=== PATIENT | female | born 2000 | race Caucasian/White ===

== ENCOUNTER 2021-03-23 00:41 | Emergency (ER) | payer OTHER, SELFPAY ==
[2021-03-23 01:34] VITALS: BP 97/55; PULSE 70; RESP 18; TEMP 35.9; O2SAT 98; BMI 21.7
--- NOTE | 2021-03-23 02:18 | ECG_ITS ---
Test Reason : SOB Blood Pressure : / mmHG Vent. Rate : 054 BPM Atrial Rate : 054 BPM P-R Int : 162 ms QRS Dur : 076 ms QT Int : 416 ms P-R-T Axes : 058 030 039 degrees QTc Int : 394 ms Sinus bradycardia Otherwise normal ECG No previous ECGs available Referred By: Generic ED Physician Electronically Signed By:KATJA ARSHAD
[2021-03-23 02:35] LABS: MANUAL DIFF FLAG NO
[2021-03-23 02:43] LABS: Basophils Percent Auto 0.3 % (0-2); Eosinophils Absolute Auto 0.1 X10*3/uL (0.0-0.4); Hematocrit 32.8 % (37-47); Hemoglobin 11.6 g/dl (12.0-16.0); Imm Gran Abs Auto 0.05 X10*3/uL (0.00-0.03); Imm Gran Pct Auto 0.4 % (0.0-0.4); Lymphocytes Absolute Auto 2.4 X10*3/uL (1.2-4.9); Lymphocytes Percent Auto 20.6 % (20-40); Mean Corpuscular HGB Conc 35.4 g/dl (31.0-35.0); Mean Corpuscular Hemoglobin 31.5 pg (27.0-33.0); Mean Corpuscular Volume 89.1 fL (80-98); Mean Platelet Volume 9.9 fL (9.4-12.3); Monocytes Absolute Auto 0.7 X10*3/uL (0.1-1.2); Monocytes Percent Auto 5.7 % (2-11); Neutrophils Absolute Auto 8.6 X10*3/uL (2.0-8.3); Platelet Count 304 X10*3/uL (160-400); Red Blood Count 3.68 X10*6/uL (4.20-5.50); Red Cell Distribution Width 13.2 % (11.0-16.0); White Blood Count 11.9 X10*3/uL (4.8-10.8)
--- NOTE | 2021-03-23 02:44 | PC.NURSE ---
PT placed on monitor, VSS, IV inserted into left AC. Labs and EKG completed. PT is still reporting left sided chest pain. PT is resting in bed, respirations even and unlabored.
[2021-03-23 02:58] LABS: Anion Gap 14 (12-20); Blood Urea Nitrogen 8 mg/dL (9-16); Calcium 9.6 mg/dL (8.4-10.2); Carbon Dioxide 23 mmol/L (22-29); Chloride 106 mmol/L (96-108); Creatinine Clr Calc Pharmacy 111.9; Estimated Glomerular Filt Rate > 60; Glucose Random 72 mg/dL (60-115); Potassium 4.6 mmol/L (3.3-5.1); Sodium 138 mmol/L (135-145)
[2021-03-23 02:59] LABS: Troponin-I High Sensitivity 5.2 ng/L (<3.5-17.0)
[2021-03-23 03:15] LABS: D Dimer < 200 NG/ML
--- NOTE | 2021-03-23 04:52 | ED.CHESTPAIN ---
HPI - Chest Pain General Chief Complaint: Chest Pain Stated Complaint: SOB/Chest pain/Back pain 4 months Time Seen by Provider: 03/23/21 04:52 Source: patient Mode of arrival: ambulatory Limitations: no limitations History of Present Illness HPI narrative: 20-year-old female, approximately 17 weeks with an estimated day delivery of 08/26/2022 who presents emergency department for evaluation of chest pain and shortness of breath. Patient states that she has had a dull pain in her epigastric and left chest area for approximately 2 days. She states that at 11:00 p.m., the chest pain became worse and she developed shortness of breath. She states that the pain was a constant pain which was 6/10 at its worst. She states that she had chills but no fever or cough. She states she has been experiencing some heartburn like symptoms as well. The chest pain was worse with breathing and did radiate to her back. She denied frequency, urgency, dysuria or change in bowel movements. Related Data Previous Rx's Medication Instructions Recorded cimetidine 800 mg tablet 800 mg PO BID #60 tab 03/23/21 Allergies Allergy/AdvReac Type Severity Reaction Status Date / Time No Known Allergies Allergy Verified 03/23/21 01:33 Review of Systems Review of Systems: Yes all other systems are reviewed and are negative [facility] Past Medical History [facility] Narrative: Past medical history: Asthma, GERD, depression, anxiety, PTSD. Past surgical history: None. Social history: She denies tobacco, alcohol and drug use. Social History Social History Advance Directives: No Advance Directives Information Provided: No Patient : Yes Physical Exam Vital Signs: Vital Signs: Last Vital Signs Temp 96.7 F L 03/23/21 01:34 Pulse 70 03/23/21 01:34 Resp 18 03/23/21 01:34 BP 97/55 L 03/23/21 01:34 Pulse Ox 98 03/23/21 01:34 Body Mass Index 21.7 Const: Other: Very pleasant and cooperative female patient, does not appear to be in distress, answers all questions appropriately. HENMT: Head: Yes normal to inspection, Yes normocephalic and Yes atraumatic Ears: external ears normal General nose exam: Normal external nose present Face and sinus: Yes normal facial exam Mouth: Normal oral and palatal mucosa present Throat: Yes posterior oropharynx normal Eyes: General: appearance normal, both eyes and all related structures Pupils: Equal, round and reactive pupils present Neck: Neck: Yes normal visual inspection, Yes no lymphadenopathy, Yes trachea midline and Yes supple Chest: Chest palpation & inspection: normal inspection of the chest and tenderness (Left anterior chest) Resp: Effort & Inspection: normal respiratory effort and able to speak in complete sentences Auscultation: clear to auscultation bilaterally Cardio: Rate: regular rate Rhythm: regular rhythm Heart sounds: S1 normal heart sound present, S2 normal heart sound present and no murmurs GI: Inspection: Yes other (Gravid) Palpation (GI): Soft to palpation, nontender and no guarding Auscultation: normal bowel sounds : General: Yes no CVA tenderness Back/Spine/Pelvis: Back: no CVA tenderness Skin: General skin exam: no rashes or lesions noted Neuro: Cranial nerves: Yes CN's II-XII intact bilaterally and Yes Equal, round and reactive pupils present Cognition (Neuro): normal cognition Motor exam (neuro): 5/5 motor strength present throughout Extrem: General: Yes normal to inspection Psych: Appearance: grossly normal Speech and movement: Normal speech and movement present Affect: normal affect Attitude: cooperative Thought process: Normal thought process present Thought content: Normal thought content present Course Course Course Narrative: 20-year-old female who presents emergency department for evaluation of left-sided chest pain for 2 days, with chest pain that was worse at 11:00 p.m. associated with shortness of breath. The patient's vital signs were normal. Examination did reveal tenderness with palpation of her left chest wall and epigastric tenderness. Twelve EKG was unremarkable. Laboratory evaluation revealed mild anemia with an H&H of 11.6 and 32.8. The patient's D-dimer was below detectable limits. At this time, I suspect that the patient's pain is caused by gastritis and esophageal reflex/esophageal spasm. I did discuss this with the patient. The patient was started on cimetidine 800 mg twice a day for 1 month, she was advised to take Tums for the next week for her heartburn symptoms. She was also advised to take Tylenol for pain. She was discharged home. The patient was given verbal and printed instructions prior to discharge. The patient was given verbal and printed instructions prior to discharge. The patient was advised to follow-up with her PCP in 2 days and to return to the emergency department if her symptoms get worse or if she develops any new symptoms that are concerning to her. MDM - Chest Pain Lab Data Result diagrams: 03/23/21 02:25 03/23/21 02:25 Labs: Lab Results 03/23/21 03/23/21 03/23/21 Range/Units 02:25 02:25 02:25 WBC 11.9 H (4.8-10.8) X10*3/uL RBC 3.68 L (4.20-5.50) X10*6/uL Hgb 11.6 L (12.0-16.0) g/dl Hct 32.8 L (37-47) % MCV 89.1 (80-98) fL MCH 31.5 (27.0-33.0) pg MCHC 35.4 H (31.0-35.0) g/dl RDW 13.2 (11.0-16.0) % Plt Count 304 (160-400) X10*3/uL MPV 9.9 (9.4-12.3) fL Immature Gran % (Auto) 0.4 (0.0-0.4) % Neut % (Auto) 72.0 (45-73) % Lymph % (Auto) 20.6 (20-40) % [place] % (Auto) 5.7 (2-11) % Eos % (Auto) 1.0 (0-4) % Baso % (Auto) 0.3 (0-2) % Lymph # (Auto) 2.4 (1.2-4.9) X10*3/uL [place] # (Auto) 0.7 (0.1-1.2) X10*3/uL Eos # (Auto) 0.1 (0.0-0.4) X10*3/uL Baso # (Auto) 0.0 (0.0-0.2) X10*3/uL Abs Immat Gran (auto) 0.05 H (0.00-0.03) X10*3/uL Absolute Neuts (auto) 8.6 H (2.0-8.3) X10*3/uL Absolute Nucleated RBC 0.000 (0.0-0.012) X10*3/uL Nucleated RBC % (auto) 0.0 (0.0-0.2) /100WBC D-Dimer NG/ML Sodium 138 (135-145) mmol/L Potassium 4.6 (3.3-5.1) mmol/L Chloride 106 (96-108) mmol/L Carbon Dioxide 23 (22-29) mmol/L Anion Gap 14 (12-20) BUN 8 L (9-16) mg/dL Creatinine 0.60 (0.5-1.4) mg/dL Estim Creat Clear Calc 111.9 Estimated GFR > 60 Random Glucose 72 (60-115) mg/dL Calcium 9.6 (8.4-10.2) mg/dL Troponin I High Sens 5.2 (<3.5-17.0) ng/L 03/23/21 Range/Units 02:25 WBC (4.8-10.8) X10*3/uL RBC (4.20-5.50) X10*6/uL Hgb (12.0-16.0) g/dl Hct (37-47) % MCV (80-98) fL MCH (27.0-33.0) pg MCHC (31.0-35.0) g/dl RDW (11.0-16.0) % Plt Count (160-400) X10*3/uL MPV (9.4-12.3) fL Immature Gran % (Auto) (0.0-0.4) % Neut % (Auto) (45-73) % Lymph % (Auto) (20-40) % [place] % (Auto) (2-11) % Eos % (Auto) (0-4) % Baso % (Auto) (0-2) % Lymph # (Auto) (1.2-4.9) X10*3/uL [place] # (Auto) (0.1-1.2) X10*3/uL Eos # (Auto) (0.0-0.4) X10*3/uL Baso # (Auto) (0.0-0.2) X10*3/uL Abs Immat Gran (auto) (0.00-0.03) X10*3/uL Absolute Neuts (auto) (2.0-8.3) X10*3/uL Absolute Nucleated RBC (0.0-0.012) X10*3/uL Nucleated RBC % (auto) (0.0-0.2) /100WBC D-Dimer < 200 NG/ML Sodium (135-145) mmol/L Potassium (3.3-5.1) mmol/L Chloride (96-108) mmol/L Carbon Dioxide (22-29) mmol/L Anion Gap (12-20) BUN (9-16) mg/dL Creatinine (0.5-1.4) mg/dL Estim Creat Clear Calc Estimated GFR Random Glucose (60-115) mg/dL Calcium (8.4-10.2) mg/dL Troponin I High Sens (<3.5-17.0) ng/L Discharge Plan Discharge Clinical Impression: Chest pain, Acute dyspnea, Second trimester , Esophagitis Patient Disposition: Home, Self-Care Instructions: Esophagitis (ED) Additional Instructions: Your laboratory evaluation was unremarkable, your D-dimer was below detectable limits which is reassuring suggesting that you do not have a blood clot as the cause of your chest pain. Your EKG was normal as well. Your presentation is consistent with gastritis and esophagitis. This is common in . Take cimetidine 800 mg pills, 1 pill twice a day for 1 month. This medication is safe in . This medication reduces the amount of acid that you produce in your stomach and help her stomach and esophagus heal. You can also take Tums 2 pills every 4-6 hours for the next week to help with heartburn like symptoms. Follow-up with your doctor in 2 days. Please return to the emergency department if your symptoms get worse or if you develop any symptoms that are concerning to you. Prescriptions: New cimetidine 800 mg tablet 800 mg PO BID Qty: 60 RF: 0 Stand Alone Forms: Work/School Release
--- NOTE | 2021-03-23 04:55 | PC.NURSE ---
Provider at bed side for primary assessment.
[2021-03-23 05:10] VITALS: BP 111/63; PULSE 68; RESP 16; O2SAT 100
== END 2021-03-23 05:31 | disposition home or self-care (01) ==
PROVIDERS: Emergency Provider Emergency Medicine Emergency Medical Services
DX: O26.92 Pregnancy related conditions, unspecified, second trimester (principal); R06.02 Shortness of breath; Z3A.17 17 weeks gestation of pregnancy; Z79.899 Other long term (current) drug therapy
CPT/HCPCS: 36415; 80048; 84484; 85025; 85379; 93005; 99284